=== PATIENT | female | born 1965 | race Caucasian/White ===

== ENCOUNTER → 2016-10-27 | Outpatient (CLI) | payer OTHER ==
[~2016-10-27] MED LIST: ALBUTEROL INH PO; ALBUTEROL INHAL17 GM IH; ASPIR 8181 MG PO; CLONAZEPAM 1 MG1 M1 PO; COMPAZINE25 MG RE; COMPAZINE5 MG OR; CRESTOR40 MG PO; DESYREL300 MG PO; FLEXERIL PO; GAMUNEX IV; HYDROCODON-ACE1 EAC7 OR; IBUPROFEN 200200 M1 PO; IMURAN 50MG TAB50 M1 PO; IRON325 PO; LEVOTHYROXINE75 MCG PO; LEXAPRO20 MG PO; LORTAB 5 MG/5001 TA1 PO; MESTINON60 MG PO; MILLIPRED DP5 M1 PO; MULTIPLE VITAM1 EAC2 PO; NORCO 5-325 TA1 EACH PO; PERCOCET 5-3251 EACH PO; PREDNISONE 10 M10 M1 PO; PREDNISONE 10 M10 MG PO; PREDNISONE 20 M20 M1 PO; PROTONIX 20 MG20 M1 PO; PYRIDOSTIGMINE60 M1 PO; SENNA S TABLET1 EACH PO; SEROQUEL XR400 MG PO; TRAZODONE HCL100 MG PO; TRILIPIX135 MG PO; VENTOLIN HFA 1818 GM INH; VITAMIN E200 UNI4 PO; WELLBUTRIN SR200 MG PO
== END | disposition home or self-care (01) ==
LOC: SPEC 06:45 → OPONC 06:45
DX: G70.00 Myasthenia gravis without (acute) exacerbation (principal)

== ENCOUNTER → 2017-07-27 | Outpatient (CLI) | payer OTHER ==
[~2017-07-27] VITALS: Ht 172.7 cm; Wt 83.0 kg
[~2017-07-27] MED LIST changes: +ACYCLOVIR 400400 MG PO; +ALBUTEROL2.5 MG/31 INH; +ALENDRONATE SOD35 MG PO; +AMOX TR-K CLV1 EAC4 PO; +BENTYL 10 MG CA10 M1 PO; +CELLCEPT500 MG PO; +DIPHENHYDR50 MG/1 ML IM; +EPIPEN0.3 MG/0.1 IM; +FENOFIBRATE145 M1 PO; +GAMUNEX-C10 GM/100 IM; +LIPITOR10 MG PO; +ONDANSETRON HCL4 M2 IM; +PERCOCET PO; +PHENERGAN 25 MG25 M1 PO; +PROAIR HFA8.5 GM INH; +SERTRALINE HCL50 MG PO
[2017-07-27 11:42] VITALS: BP 106/69
== END | disposition home or self-care (01) ==
LOC: SPEC 11:22
DX: Z45.2 Encounter for adjustment and management of vascular access device (principal); G70.00 Myasthenia gravis without (acute) exacerbation; E78.5 Hyperlipidemia, unspecified; F31.9 Bipolar disorder, unspecified; Z90.49 Acquired absence of other specified parts of digestive tract; Z98.890 Other specified postprocedural states; Z87.891 Personal history of nicotine dependence; Z79.899 Other long term (current) drug therapy; Z79.891 Long term (current) use of opiate analgesic

== ENCOUNTER → 2019-05-23 | Outpatient (CLI) | payer OTHER ==
--- NOTE | 2019-05-23 15:45 | NUR ---
IV TEAM PLACED PICC LINE.
--- NOTE | 2019-05-23 16:59 | NUR ---
CONSULTED TO PLACE A PICC FOR A OUTPATIENT SENT IN THIS EVENING. ORDER AND CONSENT NOTED. THE PROCEDURE WELL BENIFITS AND RISKS DISCUSSED WITH THE PATIENT. SHE HAS HAD MULTIPLE PICCS AND COMMENTED SHE IS USUALLY A CHALLENGE. THE RIGHT UPPER ARM BASILIC WAS WIDLEY PATENT. A #4F SINGLE LUMEN POWER PICC WAS PLACED AFTER A BEDSIDE TIMEOUT WAS COMPLETED. THE LINE WAS TRIMMED TO 44CM AND ADVANCED WITHOUT DIFFICULTY. LINE WAS CONFIRMED IN GOOD POSITION BY A STAT CHEST XRAY
== END ==
LOC: OPONC 14:32
DX: Z45.2 Encounter for adjustment and management of vascular access device (principal); G70.00 Myasthenia gravis without (acute) exacerbation
CPT/HCPCS: 27000

== ENCOUNTER → 2019-11-15 | Outpatient (CLI) | payer OTHER ==
[~2019-11-15] VITALS: Ht 172.7 cm; Wt 92.1 kg
[2019-11-15 09:48] VITALS: BP 118/75
--- NOTE | 2019-11-15 10:51 | NUR ---
VASCULAR ACCESS CONSULTED FOR PICC PLACEMENT. ORDER,CONSENT,HX MEDS VERIFIED. DISCUSSED BENEFITS AND RISK OF PICC WITH PT, VERBALIZED UNDERSTANDING. WENDY BASILIC WAS WIDELY PATENT WITH USG. 4FR SL POWER PICC TRIMMED TO 44CM INSERTED TO 0CM EXTERNAL. PT TOLERATED WELL. WALLET CARD GIVEN TO PT.
--- NOTE | 2019-11-15 11:01 | NUR ---
CXR CONFIRMED PLACEMENT OF WENDY PICC LINE, LOWER SVC AT CAJ. PICC RELEASED FOR IMMEDIATE USE PER PROTOCOL.
== END ==
LOC: ER 09:34 → EDSTATUS 11:33 → ER 11:35
PROVIDERS: ATTEND Internal Medicine
DX: Z45.2 Encounter for adjustment and management of vascular access device (principal)
CPT/HCPCS: 27000